=== PATIENT | female | born 1985 | race Caucasian/White ===

== ENCOUNTER → 2017-06-07 | Outpatient (CLI) | payer OTHER ==
[~2017-06-07] MED LIST: NORCO 325 MG-51 TAB PO
== END ==
LOC: COL.PUL 12:59
DX: J45.909 Unspecified asthma, uncomplicated (principal)
CPT/HCPCS: J7674

== ENCOUNTER → 2019-07-12 | Outpatient (CLI) | payer OTHER | LOC: COL.RAD 09:38 | DX: M54.5 Low back pain (principal) ==

== ENCOUNTER → 2023-09-28 | Outpatient (CLI) | payer OTHER | LOC: MC.RAD 08:57 | DX: Z12.31 Encounter for screening mammogram for malignant neoplasm of breast (principal) ==